=== PATIENT | male | born 1975 | race Caucasian/White ===

== ENCOUNTER 2023-03-12 21:42 | Inpatient (IN) | payer OTHER, SELFPAY ==
--- NOTE | ~2023-03-12 | US_ITS ---
EXAMINATION: US VENOUS ULTRASOUND WITH DOPPLER LOWER EXTREMITY, RIGHT CLINICAL INFORMATION: Right lower extreme swelling. COMPARISON: None available. TECHNIQUE: Ultrasound of the deep veins is performed from the hip to the calf with compression sonography and color and pulse Doppler assessment. Spectral analysis with color-flow imaging is performed. FINDINGS: There is normal venous compression and respiratory variation and augmented flow. The visualized common femoral vein, superficial femoral vein, profunda femoral vein, popliteal vein, and the trifurcation region shows no evidence of deep venous thrombosis. There is no significant popliteal fossa cyst. If the patient's symptoms persist, followup ultrasound in 5 days 7 days might be of value to exclude proximal propagation from a non-visualized calf vein. US/US venous duplex LE RT IMPRESSION: No DVT demonstrated in the right lower extremity.
[2023-03-12 21:55] VITALS: BP 121/76; PULSE 96; TEMP 36.1
[2023-03-12] MEDS: traZODone HCL 50 MG TABLET PO (23:22)
[2023-03-12] MEDS: hydrOXYzine HCL 25 MG TABLET PO (23:22)
[2023-03-13 00:07] VITALS: BMI 25.8
--- NOTE | 2023-03-13 00:10 | PC.ADMIT ---
A white, Thai-speaking male, aged 47 years was admitted to the [facility] as a CV at 2154 following referral from [facility] and [facility] Team. Pt presented at [facility] in the early hours of 03/12/23 with a plan to commit suicide by jumping off of a bridge or step into traffic. Pt said he is seeking treatment primarily for Etoh use; pt states that his cocaine use was really a binge, but he drinks up to 10 or more drinks nearly daily. MITCHELL was positive for cocaine, BAL was <3. Pt denies current withdrawal symptoms; CIWA score at [facility] was 7 and later 4. Pt reports feeling hopeless upon awakening every day. Pt reports these symptoms have been worse for the past week. Pt reports a history of trauma but was unwilling to disclose more than that. Pt lives with a friend in [place], but said that it is not a good environment for him as there is often Etoh or substance abuse occurring there. Pt reports having previous inpatient admissions for similar reasons in the past that helped him. Pt was calm and cooperative upon arrival. Pt denied current SI, but did say he felt he does not want to wake up. Pt says he can come to staff for help. Pt rates depression 8/10, anxiety 3-4/10. Pt denies AH/VH, HI, and pain. Pt is a daily one pack daily smoker and would like PRN 4mg nicotine lozenge ordered. Pt does not have a PCP, therapist, or psychiatric medication provider at this time. Pt is open to therapy, but is hesitant to take medications. Pt spoke about experiencing akathesia with buspar, haldol, zyprexa and seroquel in the past. Medical issues include Crohn's disease with history of abdominal surgery and reversed ostomy. Pt reports he currently has a reddened raised hives on arms and back for which he takes OTC allergy medication. [id number] done, admission orders obtained, safety tool and initial treatment plan done. Pt is resting in room on 15 minute safety checks at this time.
[2023-03-13 08:56] LABS: Estimated Average Glucose 100 mg/dL; Hemoglobin A1c % 5.1 %
[2023-03-13 09:09] LABS: Cholesterol 147 mg/dL; HDL Cholesterol 57 mg/dL; LDL Cholesterol Calculated 71 mg/dl; Magnesium 2.1 mg/dL (1.6-2.6); Triglycerides 96 mg/dL
[2023-03-13 09:13] VITALS: BP 111/80; PULSE 104; RESP 18; TEMP 36.4; O2SAT 98
[2023-03-13 09:40] LABS: Free T4 (Free Thyroxine) 0.77 ng/dL (0.71-1.85); Thyroid Stimulating Hormone 1.15 uIU/mL (0.32-4.0); Vitamin B12 308 pg/mL (200-900)
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
[2023-03-13 18:00] VITALS: BP 135/74; PULSE 112; RESP 18; TEMP 36.1; O2SAT 96
[2023-03-13] MEDS: Thiamine HCL 100 MG TABLET PO (18:54)
[2023-03-13] MEDS: Folic Acid 1 MG TABLET PO (18:54)
[2023-03-13] MEDS: LORazepam 1 MG TABLET PO ×2 (18:54→20:15)
[2023-03-13] MEDS: Mirtazapine 7.5 MG TABLET PO (20:14)
[2023-03-13] MEDS: traZODone HCL 50 MG TABLET PO (20:14)
[2023-03-13] MEDS: hydrOXYzine HCL 25 MG TABLET PO (20:14)
[2023-03-14 07:00] VITALS: BMI 26.9
[2023-03-14 08:45] VITALS: BP 111/77; PULSE 108; RESP 18; TEMP 36.6; O2SAT 93
[2023-03-14] MEDS: LORazepam 1 MG TABLET PO ×2 (08:48→20:44)
[2023-03-14] MEDS: Thiamine HCL 100 MG TABLET PO (08:48)
[2023-03-14] MEDS: Folic Acid 1 MG TABLET PO (08:48)
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
[2023-03-14 18:00] VITALS: BP 121/84; PULSE 94; RESP 14
[2023-03-14] MEDS: traZODone HCL 50 MG TABLET PO (20:44)
[2023-03-14] MEDS: Mirtazapine 7.5 MG TABLET PO (20:44)
[2023-03-14] MEDS: hydrOXYzine HCL 25 MG TABLET PO (21:37)
--- NOTE | 2023-03-15 08:10 | HO.PSYCHPN ---
Subjective Subjective Date of Service: 03/15/23 Reason For Visit: Depression, SI, Alcohol, Substance use D/O Interim History: Met with patient; discussed with team Patient reports that he does feel a little better. Depressions not quite as bad, anxiety not quite as bad; no SI. He slept better last night and agrees to have mirtazapine increased to 15 mg. Patient is ambivalent about going to a program. He says he wants to go but has some reservations, wanting to go straight from the unit if possible; he says otherwise he will just go home. Patient asked for allergy medication and agreed to Claritin. Mental Status Exam Mental Status Exam Narrative: Pt is alert and oriented; behavior is cooperative and calm; patient is not in distress; dressed in casual attire with unkempt hair, scuffy, malodorous; mood is described as little better and affect congruent, downcast; eye contact intermittent; Speech is normal rate, volume and prosody and not pressured; no psychomotor retardation present; thought process is organized and goal directed; Thought content is on treatment, aftercare, but also on self-deprecating thoughts; otherwise pertinent to relevant topics and without any delusional content, paranoid ideations or grandiosity; no SI; no HI. There is no evidence of perceptual disturbance. Patients insight and judgment improving, impaired but adequate. Diagnostics Vital Signs (24Hr): Vital Signs - 24 hr 03/14/23 08:45 03/14/23 18:00 Temperature 97.9 F Pulse Rate 108 H 94 Respiratory Rate 18 14 Blood Pressure 111/77 121/84 Pulse Oximetry 93 Oxygen Delivery Method Room Air BMI result Body Mass Index 26.9 Labs Labs: Laboratory Results - last 48 hr 03/13/23 03/13/23 08:21 08:21 Estimat Average Glucose 100 Hemoglobin A1c % 5.1 Magnesium 2.1 Triglycerides 96 Cholesterol 147 LDL Cholesterol, Calc 71 HDL Cholesterol 57 Vitamin B12 308 Folate 11.0 TSH 1.15 Free T4 0.77 Imaging Radiology Impressions: ITS Impressions Venous Duplex 03/13/23 17:11 IMPRESSION: No DVT demonstrated in the right lower extremity. Medications Medications Current Medications Acetaminophen (Acetaminophen 325 Mg Tablet) 650 mg PO Q6H PRN PRN Reason: Headache/Pain Mild Scale (1-3) Al Hydroxide/Mg Hydroxide (Magnesium Hydrox/Alum Hydrox 30 Ml Oral.Susp) 30 ml PO Q6H PRN PRN Reason: Heartburn/Nausea Folic Acid (Folic Acid 1 Mg Tablet) 1 mg PO DAILY [facility] Last Admin: 03/14/23 08:48 Dose: 1 mg Hydroxyzine HCl (Hydroxyzine Hcl 25 Mg Tablet) 25 mg PO Q6H PRN PRN Reason: Anxiety Last Admin: 03/14/23 21:37 Dose: 25 mg Lorazepam (Lorazepam 1 Mg Tablet) 1 mg PO BID [facility] Last Admin: 03/14/23 20:44 Dose: 1 mg Magnesium Hydroxide (Milk Of Magnesia 30 Ml Oral.Susp) 30 ml PO DAILY PRN PRN Reason: Constipation Mirtazapine (Mirtazapine 7.5 Mg Tablet) 7.5 mg PO BEDTIME [facility] Last Admin: 03/14/23 20:44 Dose: 7.5 mg Nicotine Polacrilex (Nicotine Polacrilex 2 Mg Gum) 2 mg BUCCAL Q2H PRN PRN Reason: Nicotine Cravings Thiamine HCl (Thiamine Hcl 100 Mg Tablet) 100 mg PO DAILY [facility] Last Admin: 03/14/23 08:48 Dose: 100 mg Trazodone HCl (Trazodone Hcl 50 Mg Tablet) 50 mg PO BEDTIME MRX1 PRN PRN Reason: Insomnia Last Admin: 03/14/23 20:44 Dose: 50 mg Allergies Allergies Allergy/AdvReac Type Severity Reaction Status Date / Time buspirone Allergy Unknown Unknown Verified 03/12/23 17:31 olanzapine Allergy Unknown Unknown Verified 03/12/23 17:31 quetiapine [From Seroquel] Allergy Unknown Unknown Verified 03/12/23 17:31 haldol Allergy Unknown Unknown Uncoded 03/12/23 17:31 Assessment & Plan Assessment & Plan (1) Routine medical exam: Status: Acute Code(s): Z00.00 - Encounter for general adult medical examination without abnormal findings Plan Patient is a 47-year-old male with history of depression, PTSD, chronic alcohol abuse/dependence, possible Crohn's disease who presents for worsening depression.? -Patient has an ever present, chronic moderate depression that intermittently worsens to bouts of severe depression; alcohol plays carious role as it both causes depression and relieves him of depressive thoughts, thus he is ambivalent about sobriety.? 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 Patient reports he may have Crohn's disease however he is ambivalent about his level of commitment to follow up with medical care. Hospital Course 03/15 patient reports feeling a little bit better; no SI. Agrees to increasing mirtazapine to 15 mg. Says withdrawals ending. Agrees to try Claritin for allergies. Considering going to a [facility] but still ambivalent. Patient acknowledges there is something about alcohol he is not sure if he is ready to give up, mostly how it subdued negative thoughts and feelings. Plan: CV Q 15 minute checks Increased to mirtazapine 15 mg q.h.s. Taper and discontinue Ativan Start Claritin 10 mg daily Hospitalist exam: # Crohn's disease- stable without acute flare up -Pt asymptoamtic at this time. 6+ without any flare -Recommend outpt follow up with gastroenterology -Unable to review colonoscopy report from [facility], but reviewed hospital notes #History RLE RVT- provoked -diagnosed at [facility] 09/01 on U/s (reviewed) -Treated inpt with heparin and transitioned to eliquis. Did not complete 3 months recommended course -RLE venous duplex negative for DVT. No further treatment with anticoagulants needed. Patient educated on: diagnosis, medication risk/benefits and substance abuse Informed Consent: understands Reason for contiued inpatient stay Substantial Risk for: med/psych decompensation Time Spent With Patient Time: Total time managing care of this patient today ____ minutes.
[2023-03-15] MEDS: Thiamine HCL 100 MG TABLET PO (08:15)
[2023-03-15] MEDS: Folic Acid 1 MG TABLET PO (08:15)
[2023-03-15] MEDS: LORazepam 1 MG TABLET PO (08:15)
[2023-03-15 09:27] VITALS: BP 109/82; PULSE 92; RESP 18; TEMP 36.1; O2SAT 96
[2023-03-15] MEDS: Loratadine 10 MG TABLET PO (10:30)
[2023-03-15 16:18] VITALS: BP 119/76; PULSE 104
[2023-03-15] MEDS: Mirtazapine 15 MG TABLET PO (21:03)
[2023-03-16] MEDS: LORazepam 1 MG TABLET PO (08:08)
[2023-03-16] MEDS: Thiamine HCL 100 MG TABLET PO (08:08)
[2023-03-16] MEDS: Loratadine 10 MG TABLET PO (08:09)
[2023-03-16] MEDS: Folic Acid 1 MG TABLET PO (08:09)
[2023-03-16 10:29] VITALS: BP 129/68; PULSE 62; RESP 18; TEMP 36.2; O2SAT 98
--- NOTE | 2023-03-16 11:25 | HO.PSYCHPN ---
Subjective Subjective Date of Service: 03/16/23 Reason For Visit: Depression, SI, Alcohol, Substance use D/O Subjective Notes: Conditional Voluntary Interim History: Patient seen, chart reviewed. Case discussed with RH. Reports having a rash which is pruritic. On exam, noted to have a few raised red lesions on right leg, left arm and face. None noted on trunk or chest. Recently started mirtazapine and claritin. Rash is not generalized. Medication Compliance: Yes Side effects from medications: No Attending Groups: Intermittent Review of Systems Acute medical concerns: Yes non-generalized rash Mental Status Exam Mental Status Exam Patient Appearance: Disheveled Patient Orientation: Person, Place, Time and Situation Level of Consciousness: Drowsy Patient Behavior: Appropriate, Passive, Anxious, Fatigued and Isolative Mood Description: Depressed and Anxious Affect Description: Withdrawn and Depressed Ability to Follow Directions: Good Speech Pattern: Clear Memory Description: Intact Hallucinations: None Delusions: Not Present Thought Process: Goal Oriented Depressive Symptoms: Increased Anxiety, Sleeping More Than Usual and Increased Fatigue Judgement: Fair Diagnostics Vital Signs (24Hr): Vital Signs - 24 hr 03/15/23 16:18 03/16/23 10:29 Temperature 97.1 F Pulse Rate 104 H 62 Respiratory Rate 18 Blood Pressure 119/76 129/68 Pulse Oximetry 98 Oxygen Delivery Method Room Air BMI result Body Mass Index 26.9 Imaging Radiology Impressions: ITS Impressions Venous Duplex 03/13/23 17:11 IMPRESSION: No DVT demonstrated in the right lower extremity. Medications Medications Current Medications Acetaminophen (Acetaminophen 325 Mg Tablet) 650 mg PO Q6H PRN PRN Reason: Headache/Pain Mild Scale (1-3) Al Hydroxide/Mg Hydroxide (Magnesium Hydrox/Alum Hydrox 30 Ml Oral.Susp) 30 ml PO Q6H PRN PRN Reason: Heartburn/Nausea Folic Acid (Folic Acid 1 Mg Tablet) 1 mg PO DAILY [facility] Last Admin: 03/16/23 08:09 Dose: 1 mg Hydroxyzine HCl (Hydroxyzine Hcl 25 Mg Tablet) 25 mg PO Q6H PRN PRN Reason: Anxiety Last Admin: 03/14/23 21:37 Dose: 25 mg Loratadine (Loratadine 10 Mg Tablet) 10 mg PO DAILY [facility] Last Admin: 03/16/23 08:09 Dose: 10 mg Lorazepam (Lorazepam 1 Mg Tablet) 1 mg PO DAILY [facility] Stop: 03/17/23 12:00 Last Admin: 03/16/23 08:08 Dose: 1 mg Magnesium Hydroxide (Milk Of Magnesia 30 Ml Oral.Susp) 30 ml PO DAILY PRN PRN Reason: Constipation Mirtazapine (Mirtazapine 15 Mg Tablet) 15 mg PO BEDTIME [facility] Last Admin: 03/15/23 21:03 Dose: 15 mg Nicotine Polacrilex (Nicotine Polacrilex 2 Mg Gum) 2 mg BUCCAL Q2H PRN PRN Reason: Nicotine Cravings Thiamine HCl (Thiamine Hcl 100 Mg Tablet) 100 mg PO DAILY [facility] Last Admin: 03/16/23 08:08 Dose: 100 mg Trazodone HCl (Trazodone Hcl 50 Mg Tablet) 50 mg PO BEDTIME MRX1 PRN PRN Reason: Insomnia Last Admin: 03/14/23 20:44 Dose: 50 mg Allergies Allergies Allergy/AdvReac Type Severity Reaction Status Date / Time buspirone Allergy Unknown Unknown Verified 03/12/23 17:31 olanzapine Allergy Unknown Unknown Verified 03/12/23 17:31 quetiapine [From Seroquel] Allergy Unknown Unknown Verified 03/12/23 17:31 haldol Allergy Unknown Unknown Uncoded 03/12/23 17:31 Assessment & Plan Assessment & Plan (1) Routine medical exam: Status: Acute Code(s): Z00.00 - Encounter for general adult medical examination without abnormal findings Assessment and Plan: Remains depressed, interested in rehab. Had SI last night when thinking about his situation and all the things he cannot change. No SI today. Will discontinue claritin and use benadryl for itching, allergies and rash. If rash continues to generalize, would stop remeron. Plan Patient is a 47-year-old male with history of depression, PTSD, chronic alcohol abuse/dependence, possible Crohn's disease who presents for worsening depression.? -Patient has an ever present, chronic moderate depression that intermittently worsens to bouts of severe depression; alcohol plays carious role as it both causes depression and relieves him of depressive thoughts, thus he is ambivalent about sobriety.? 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 Patient reports he may have Crohn's disease however he is ambivalent about his level of commitment to follow up with medical care. Hospital Course 03/15 patient reports feeling a little bit better; no SI. Agrees to increasing mirtazapine to 15 mg. Says withdrawals ending. Agrees to try Claritin for allergies. Considering going to a [facility] but still ambivalent. Patient acknowledges there is something about alcohol he is not sure if he is ready to give up, mostly how it subdued negative thoughts and feelings. Plan: CV Q 15 minute checks Increased to mirtazapine 15 mg q.h.s. Taper and discontinue Ativan Start Claritin 10 mg daily Hospitalist exam: # Crohn's disease- stable without acute flare up -Pt asymptoamtic at this time. 6+ without any flare -Recommend outpt follow up with gastroenterology -Unable to review colonoscopy report from [facility], but reviewed hospital notes #History RLE RVT- provoked -diagnosed at [facility] 09/01 on U/s (reviewed) -Treated inpt with heparin and transitioned to eliquis. Did not complete 3 months recommended course -RLE venous duplex negative for DVT. No further treatment with anticoagulants needed. Reason for continued inpatient stay Substantial Risk for: harm to self Time Spent With Patient Time: Total time managing care of this patient today ___15_ minutes.
[2023-03-16 15:48] VITALS: BP 121/88; PULSE 97
[2023-03-16] MEDS: diphenhydrAMINE HCL 25 MG CAPSULE PO (19:19)
[2023-03-16] MEDS: traZODone HCL 50 MG TABLET PO (21:27)
[2023-03-16] MEDS: Mirtazapine 15 MG TABLET PO (21:27)
[2023-03-16] MEDS: hydrOXYzine HCL 25 MG TABLET PO (21:27)
[2023-03-17] MEDS: Thiamine HCL 100 MG TABLET PO (08:55)
[2023-03-17] MEDS: Folic Acid 1 MG TABLET PO (08:55)
[2023-03-17] MEDS: LORazepam 1 MG TABLET PO (08:55)
[2023-03-17 09:24] VITALS: BP 144/91; PULSE 125; RESP 18; TEMP 36.8; O2SAT 98
--- NOTE | 2023-03-17 15:20 | P.PNPSI_ITS ---
Subjective Subjective Date of Service: 03/17/23 Reason For Visit: Depression, SI, Alcohol, Substance use D/O Subjective Notes: Conditional Voluntary Interim History: Patient seen. Chart reviewed. Case discussed with RN. States he is bored as hell. Still having itching but no spread of rash beyond few isolated spots. Medication Compliance: Yes Side effects from medications: No Attending Groups: No Review of Systems Acute medical concerns: No Mental Status Exam Mental Status Exam Patient Appearance: Disheveled Level of Consciousness: Drowsy Patient Behavior: Passive, Fatigued and Poor Eye Contact Mood Description: Depressed Affect Description: Apathetic and Withdrawn Speech Pattern: Mumbled Hallucinations: None Delusions: Not Present Thought Process: Linear Thought Content: positive for Suicidal Ideation Depressive Symptoms: Difficulty Sleeping, Hopelessness and Difficulty Concentrating Diagnostics Vital Signs (24Hr): Vital Signs - 24 hr 03/16/23 15:48 03/17/23 09:24 Temperature 98.3 F Pulse Rate 97 125 H Respiratory Rate 18 Blood Pressure 121/88 144/91 H Pulse Oximetry 98 Oxygen Delivery Method Room Air BMI result Body Mass Index 26.9 Imaging Radiology Impressions: ITS Impressions Venous Duplex 03/13/23 17:11 IMPRESSION: No DVT demonstrated in the right lower extremity. Medications Medications Current Medications Acetaminophen (Acetaminophen 325 Mg Tablet) 650 mg PO Q6H PRN PRN Reason: Headache/Pain Mild Scale (1-3) Al Hydroxide/Mg Hydroxide (Magnesium Hydrox/Alum Hydrox 30 Ml Oral.Susp) 30 ml PO Q6H PRN PRN Reason: Heartburn/Nausea Diphenhydramine HCl (Diphenhydramine Hcl 25 Mg Capsule) 25 mg PO Q6H PRN PRN Reason: Itching Last Admin: 03/16/23 19:19 Dose: 25 mg Folic Acid (Folic Acid 1 Mg Tablet) 1 mg PO DAILY [facility] Last Admin: 03/17/23 08:55 Dose: 1 mg Hydroxyzine HCl (Hydroxyzine Hcl 25 Mg Tablet) 25 mg PO Q6H PRN PRN Reason: Anxiety Last Admin: 03/16/23 21:27 Dose: 25 mg Magnesium Hydroxide (Milk Of Magnesia 30 Ml Oral.Susp) 30 ml PO DAILY PRN PRN Reason: Constipation Mirtazapine (Mirtazapine 15 Mg Tablet) 15 mg PO BEDTIME [facility] Last Admin: 03/16/23 21:27 Dose: 15 mg Nicotine Polacrilex (Nicotine Polacrilex 2 Mg Gum) 2 mg BUCCAL Q2H PRN PRN Reason: Nicotine Cravings Thiamine HCl (Thiamine Hcl 100 Mg Tablet) 100 mg PO DAILY [facility] Last Admin: 03/17/23 08:55 Dose: 100 mg Trazodone HCl (Trazodone Hcl 50 Mg Tablet) 50 mg PO BEDTIME MRX1 PRN PRN Reason: Insomnia Last Admin: 03/16/23 21:27 Dose: 50 mg Allergies Allergies Allergy/AdvReac Type Severity Reaction Status Date / Time buspirone Allergy Unknown Unknown Verified 03/12/23 17:31 olanzapine Allergy Unknown Unknown Verified 03/12/23 17:31 quetiapine [From Seroquel] Allergy Unknown Unknown Verified 03/12/23 17:31 haldol Allergy Unknown Unknown Uncoded 03/12/23 17:31 Assessment & Plan Assessment & Plan (1) Routine medical exam: Status: Acute Code(s): Z00.00 - Encounter for general adult medical examination without abnormal findings Assessment and Plan: 03/16Remains depressed, interested in rehab. Had SI last night when thinking about his situation and all the things he cannot change. No SI today. Will discontinue claritin and use benadryl for itching, allergies and rash. If rash continues to generalize, would stop remeron. Plan Patient is a 47-year-old male with history of depression, PTSD, chronic alcohol abuse/dependence, possible Crohn's disease who presents for worsening depression.? -Patient has an ever present, chronic moderate depression that intermittently worsens to bouts of severe depression; alcohol plays carious role as it both causes depression and relieves him of depressive thoughts, thus he is ambivalent about sobriety.? 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 Patient reports he may have Crohn's disease however he is ambivalent about his level of commitment to follow up with medical care. Hospital Course 03/15 patient reports feeling a little bit better; no SI. Agrees to increasing mirtazapine to 15 mg. Says withdrawals ending. Agrees to try Claritin for allergies. Considering going to a [facility] but still ambivalent. Patient acknowledges there is something about alcohol he is not sure if he is ready to give up, mostly how it subdued negative thoughts and feelings. 03/17 rash has not progressed. Patient has history of itchy skin (? exzema) Claritin discontinued as not effective for itching nad was a new med started when rash recurred. Plan: CV Q 15 minute checks Increased to mirtazapine 15 mg q.h.s. Taper and discontinue Ativan Start Claritin 10 mg daily Hospitalist exam: # Crohn's disease- stable without acute flare up -Pt asymptoamtic at this time. 6+ without any flare -Recommend outpt follow up with gastroenterology -Unable to review colonoscopy report from [facility], but reviewed hospital notes #History RLE RVT- provoked -diagnosed at [facility] 09/01 on U/s (reviewed) -Treated inpt with heparin and transitioned to eliquis. Did not complete 3 months recommended course -RLE venous duplex negative for DVT. No further treatment with anticoagulants needed. Reason for continued inpatient stay Substantial Risk for: harm to self Time Spent With Patient Time: Total time managing care of this patient today ____ minutes.
[2023-03-17 16:09] VITALS: BP 113/70; PULSE 96
[2023-03-17] MEDS: Mirtazapine 15 MG TABLET PO (21:13)
[2023-03-17] MEDS: diphenhydrAMINE HCL 25 MG CAPSULE PO (21:15)
[2023-03-17] MEDS: hydrOXYzine HCL 25 MG TABLET PO (21:15)
[2023-03-17] MEDS: traZODone HCL 50 MG TABLET PO (21:15)
[2023-03-18] MEDS: Folic Acid 1 MG TABLET PO (08:33)
[2023-03-18] MEDS: Thiamine HCL 100 MG TABLET PO (08:33)
[2023-03-18 08:53] VITALS: BP 118/76; PULSE 77; RESP 74; TEMP 36.1; O2SAT 95
--- NOTE | 2023-03-18 09:39 | HO.PSYCHPN ---
Subjective Subjective Date of Service: 03/18/23 Reason For Visit: Depression, SI, Alcohol, Substance use D/O Subjective Notes: Conditional Voluntary Interim History: Reports sleep disturbance due to restless legs and itching. Rash has not progressed beyond the few locations where it has been. States he tends to get itching and rash which are stress related. States he sometimes gets restless legs when on meds. Received PRN benadryl for itching last 2 nights as well as PRN vistaril without much effect Side effects from medications: Yes (possibly causing restless legs) Review of Systems Acute medical concerns: No Mental Status Exam Mental Status Exam Patient Appearance: Unkempt Level of Consciousness: Alert Patient Behavior: Appropriate, Distractible and Poor Eye Contact Mood Description: Anxious Affect Description: Constricted Patient Cognition Impaired: No Speech Pattern: Clear Hallucinations: None Delusions: Not Present Thought Process: Linear Thought Content: positive for Suicidal Ideation (without current plan or intent) Depressive Symptoms: Difficulty Sleeping and Changes in Appetite Diagnostics Vital Signs (24Hr): Vital Signs - 24 hr 03/17/23 16:09 03/18/23 08:53 Temperature 97.0 F Pulse Rate 96 77 Respiratory Rate 74 H Blood Pressure 113/70 118/76 Pulse Oximetry 95 Oxygen Delivery Method Room Air BMI result Body Mass Index 26.9 Imaging Radiology Impressions: ITS Impressions Venous Duplex 03/13/23 17:11 IMPRESSION: No DVT demonstrated in the right lower extremity. Medications Medications Current Medications Acetaminophen (Acetaminophen 325 Mg Tablet) 650 mg PO Q6H PRN PRN Reason: Headache/Pain Mild Scale (1-3) Al Hydroxide/Mg Hydroxide (Magnesium Hydrox/Alum Hydrox 30 Ml Oral.Susp) 30 ml PO Q6H PRN PRN Reason: Heartburn/Nausea Diphenhydramine HCl (Diphenhydramine Hcl 25 Mg Capsule) 25 mg PO Q6H PRN PRN Reason: Itching Last Admin: 03/17/23 21:15 Dose: 25 mg Folic Acid (Folic Acid 1 Mg Tablet) 1 mg PO DAILY [facility] Last Admin: 03/18/23 08:33 Dose: 1 mg Hydroxyzine HCl (Hydroxyzine Hcl 25 Mg Tablet) 25 mg PO Q6H PRN PRN Reason: Anxiety Last Admin: 03/17/23 21:15 Dose: 25 mg Magnesium Hydroxide (Milk Of Magnesia 30 Ml Oral.Susp) 30 ml PO DAILY PRN PRN Reason: Constipation Mirtazapine (Mirtazapine 15 Mg Tablet) 15 mg PO BEDTIME [facility] Last Admin: 03/17/23 21:13 Dose: 15 mg Nicotine Polacrilex (Nicotine Polacrilex 2 Mg Gum) 2 mg BUCCAL Q2H PRN PRN Reason: Nicotine Cravings Thiamine HCl (Thiamine Hcl 100 Mg Tablet) 100 mg PO DAILY [facility] Last Admin: 03/18/23 08:33 Dose: 100 mg Trazodone HCl (Trazodone Hcl 50 Mg Tablet) 50 mg PO BEDTIME MRX1 PRN PRN Reason: Insomnia Last Admin: 03/17/23 21:15 Dose: 50 mg Allergies Allergies Allergy/AdvReac Type Severity Reaction Status Date / Time buspirone Allergy Unknown Unknown Verified 03/12/23 17:31 olanzapine Allergy Unknown Unknown Verified 03/12/23 17:31 quetiapine [From Seroquel] Allergy Unknown Unknown Verified 03/12/23 17:31 haldol Allergy Unknown Unknown Uncoded 03/12/23 17:31 Assessment & Plan Assessment & Plan (1) Routine medical exam: Status: Acute Code(s): Z00.00 - Encounter for general adult medical examination without abnormal findings Assessment and Plan: 03/16Remains depressed, interested in rehab. Had SI last night when thinking about his situation and all the things he cannot change. No SI today. Will discontinue claritin and use benadryl for itching, allergies and rash. If rash continues to generalize, would stop remeron. Plan Patient is a 47-year-old male with history of depression, PTSD, chronic alcohol abuse/dependence, possible Crohn's disease who presents for worsening depression.? -Patient has an ever present, chronic moderate depression that intermittently worsens to bouts of severe depression; alcohol plays carious role as it both causes depression and relieves him of depressive thoughts, thus he is ambivalent about sobriety.? 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 Patient reports he may have Crohn's disease however he is ambivalent about his level of commitment to follow up with medical care. Hospital Course 03/15 patient reports feeling a little bit better; no SI. Agrees to increasing mirtazapine to 15 mg. Says withdrawals ending. Agrees to try Claritin for allergies. Considering going to a [facility] but still ambivalent. Patient acknowledges there is something about alcohol he is not sure if he is ready to give up, mostly how it subdued negative thoughts and feelings. 03/17 rash has not progressed. Patient has history of itchy skin (? exzema) Claritin discontinued as not effective for itching nad was a new med started when rash recurred. 03/18 continued itching and restless legs last night only. Will increase benadryl for itching Plan: CV Q 15 minute checks Increased to mirtazapine 15 mg q.h.s. Taper and discontinue Ativan Start Claritin 10 mg daily Hospitalist exam: # Crohn's disease- stable without acute flare up -Pt asymptoamtic at this time. 6+ without any flare -Recommend outpt follow up with gastroenterology -Unable to review colonoscopy report from [facility], but reviewed hospital notes #History RLE RVT- provoked -diagnosed at [facility] 09/01 on U/s (reviewed) -Treated inpt with heparin and transitioned to eliquis. Did not complete 3 months recommended course -RLE venous duplex negative for DVT. No further treatment with anticoagulants needed. Reason for continued inpatient stay Substantial Risk for: harm to self Time Spent With Patient Time: Total time managing care of this patient today ____ minutes.
[2023-03-18] MEDS: diphenhydrAMINE HCL 25 MG CAPSULE 50 MG PO (19:15)
[2023-03-18] MEDS: traZODone HCL 50 MG TABLET PO (22:46)
[2023-03-19] MEDS: Thiamine HCL 100 MG TABLET PO (08:23)
[2023-03-19] MEDS: Folic Acid 1 MG TABLET PO (08:23)
[2023-03-19 08:24] VITALS: BP 117/90; PULSE 102; RESP 16; TEMP 36.4; O2SAT 96
--- NOTE | 2023-03-19 09:56 | HO.PSYCHPN ---
Subjective Subjective Date of Service: 03/19/23 Reason For Visit: Depression, SI, Alcohol, Substance use D/O Interim History: Met with patient; discussed with team; reviewed weekend progress notes Patient reports that he is doing a little better overall that his anxiety is lower. He still wants to go to [facility] program but does remain somewhat ambivalent. Patient has gone to groups and says he will continue going. He explained how 1 was helpful to. Discussed medication and does not want any changes at this time; fiction writer again mentioned ECT however patient does not want this. Mood is a little better and no SI. Mental Status Exam Mental Status Exam Narrative: Pt is alert and oriented; behavior is cooperative and calm; patient is not in distress; dressed in casual attire with unkempt hair, scuffy, marginal hygiene; mood is described as little better and affect congruent, brighter, more naturally expressive, smiles at times; eye contact intermittent; Speech is normal rate, volume and prosody and not pressured; no psychomotor retardation present; thought process is organized and goal directed; Thought content is on treatment, aftercare, but also on self-deprecating thoughts which are chronic; otherwise pertinent to relevant topics and without any delusional content, paranoid ideations or grandiosity; no SI; no HI. There is no evidence of perceptual disturbance. Patients insight and judgment improved, fair and adequate. Diagnostics Vital Signs (24Hr): Vital Signs - 24 hr 03/19/23 08:24 Temperature 97.6 F Pulse Rate 102 H Respiratory Rate 16 Blood Pressure 117/90 H Pulse Oximetry 96 Oxygen Delivery Method Room Air BMI result Body Mass Index 26.9 Imaging Radiology Impressions: ITS Impressions Venous Duplex 03/13/23 17:11 IMPRESSION: No DVT demonstrated in the right lower extremity. Medications Medications Current Medications Acetaminophen (Acetaminophen 325 Mg Tablet) 650 mg PO Q6H PRN PRN Reason: Headache/Pain Mild Scale (1-3) Al Hydroxide/Mg Hydroxide (Magnesium Hydrox/Alum Hydrox 30 Ml Oral.Susp) 30 ml PO Q6H PRN PRN Reason: Heartburn/Nausea Diphenhydramine HCl (Diphenhydramine Hcl 25 Mg Capsule) 50 mg PO Q6H PRN PRN Reason: Itching Last Admin: 03/18/23 19:15 Dose: 50 mg Folic Acid (Folic Acid 1 Mg Tablet) 1 mg PO DAILY YESSI Last Admin: 03/19/23 08:23 Dose: 1 mg Hydroxyzine HCl (Hydroxyzine Hcl 25 Mg Tablet) 25 mg PO Q6H PRN PRN Reason: Anxiety Last Admin: 03/17/23 21:15 Dose: 25 mg Magnesium Hydroxide (Milk Of Magnesia 30 Ml Oral.Susp) 30 ml PO DAILY PRN PRN Reason: Constipation Mirtazapine (Mirtazapine 15 Mg Tablet) 15 mg PO BEDTIME [facility] Last Admin: 03/18/23 22:45 Dose: Not Given Nicotine Polacrilex (Nicotine Polacrilex 2 Mg Gum) 2 mg BUCCAL Q2H PRN PRN Reason: Nicotine Cravings Thiamine HCl (Thiamine Hcl 100 Mg Tablet) 100 mg PO DAILY [facility] Last Admin: 03/19/23 08:23 Dose: 100 mg Trazodone HCl (Trazodone Hcl 50 Mg Tablet) 50 mg PO BEDTIME MRX1 PRN PRN Reason: Insomnia Last Admin: 03/18/23 22:46 Dose: 50 mg Allergies Allergies Allergy/AdvReac Type Severity Reaction Status Date / Time buspirone Allergy Unknown Unknown Verified 03/12/23 17:31 olanzapine Allergy Unknown Unknown Verified 03/12/23 17:31 quetiapine [From Seroquel] Allergy Unknown Unknown Verified 03/12/23 17:31 haldol Allergy Unknown Unknown Uncoded 03/12/23 17:31 Assessment & Plan Assessment & Plan (1) Routine medical exam: Status: Acute Code(s): Z00.00 - Encounter for general adult medical examination without abnormal findings Assessment and Plan: 03/16Remains depressed, interested in rehab. Had SI last night when thinking about his situation and all the things he cannot change. No SI today. Will discontinue claritin and use benadryl for itching, allergies and rash. If rash continues to generalize, would stop remeron. Plan Patient is a 47-year-old male with history of depression, PTSD, chronic alcohol abuse/dependence, possible Crohn's disease who presents for worsening depression.? -Patient has an ever present, chronic moderate depression that intermittently worsens to bouts of severe depression; alcohol plays carious role as it both causes depression and relieves him of depressive thoughts, thus he is ambivalent about sobriety.? 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 Patient reports he may have Crohn's disease however he is ambivalent about his level of commitment to follow up with medical care. Hospital Course 03/15 patient reports feeling a little bit better; no SI. Agrees to increasing mirtazapine to 15 mg. Says withdrawals ending. Agrees to try Claritin for allergies. Considering going to a [facility] but still ambivalent. Patient acknowledges there is something about alcohol he is not sure if he is ready to give up, mostly how it subdued negative thoughts and feelings. 03/17 rash has not progressed. Patient has history of itchy skin (? exzema) Claritin discontinued as not effective for itching and was a new med started when rash recurred. 03/18 continued itching and restless legs last night only. Will increase benadryl for itching 03/19 patient's anxiety and mood have improved and he agrees that medications have been helping. Still wants to go to [facility] though has some ambivalence; wants sobriety but still is in contemplative stages of fully given up alcohol. Patient is going to groups. Plan: CV Q 15 minute checks Continue to mirtazapine 15 mg q.h.s. Taper and discontinue Ativan Discontinued Claritin due to possible adverse reaction Hospitalist exam: # Crohn's disease- stable without acute flare up -Pt asymptoamtic at this time. 6+ without any flare -Recommend outpt follow up with gastroenterology -Unable to review colonoscopy report from [facility], but reviewed hospital notes #History RLE RVT- provoked -diagnosed at [facility] 09/01 on U/s (reviewed) -Treated inpt with heparin and transitioned to eliquis. Did not complete 3 months recommended course -RLE venous duplex negative for DVT. No further treatment with anticoagulants needed. Patient educated on: diagnosis, medication risk/benefits and ECT Informed Consent: understands Reason for continued inpatient stay Substantial Risk for: stable for discharge Time Spent With Patient Time: Total time managing care of this patient today ____ minutes.
[2023-03-19 18:00] VITALS: BP 117/81; PULSE 97; TEMP 35.9; O2SAT 95
[2023-03-19] MEDS: Mirtazapine 15 MG TABLET PO (20:44)
[2023-03-19] MEDS: diphenhydrAMINE HCL 25 MG CAPSULE 50 MG PO (20:44)
--- NOTE | 2023-03-20 09:02 | HO.PSYCHPN ---
Subjective Subjective Date of Service: 03/20/23 Reason For Visit: Depression, SI, Alcohol, Substance use D/O Interim History: Met with patient; discussed with team pt maintains that he's overall feeling better, that anxiety and depression, though remain, are less. Pt waiting for [facility]. Pt c/o of trouble sleeping due to what he describes as restless leg; he agrees to try ropinirole. Mental Status Exam Mental Status Exam Narrative: Pt is alert and oriented; behavior is cooperative and calm; patient is not in distress; dressed in casual attire with unkempt hair, scuffy, marginal hygiene; mood is described as little better and affect congruent, brighter, more naturally expressive, smiles at times; eye contact intermittent; Speech is normal rate, volume and prosody and not pressured; no psychomotor retardation present; thought process is organized and goal directed; Thought content is on treatment, aftercare, but also on self-deprecating thoughts which are chronic; otherwise pertinent to relevant topics and without any delusional content, paranoid ideations or grandiosity; no SI; no HI. There is no evidence of perceptual disturbance. Patients insight and judgment improved, fair and adequate. Diagnostics Vital Signs (24Hr): Vital Signs - 24 hr 03/19/23 18:00 Temperature 96.7 F L Pulse Rate 97 Blood Pressure 117/81 Pulse Oximetry 95 Oxygen Delivery Method Room Air BMI result Body Mass Index 26.9 Imaging Radiology Impressions: ITS Impressions Venous Duplex 03/13/23 17:11 IMPRESSION: No DVT demonstrated in the right lower extremity. Medications Medications Current Medications Acetaminophen (Acetaminophen 325 Mg Tablet) 650 mg PO Q6H PRN PRN Reason: Headache/Pain Mild Scale (1-3) Al Hydroxide/Mg Hydroxide (Magnesium Hydrox/Alum Hydrox 30 Ml Oral.Susp) 30 ml PO Q6H PRN PRN Reason: Heartburn/Nausea Diphenhydramine HCl (Diphenhydramine Hcl 25 Mg Capsule) 50 mg PO Q6H PRN PRN Reason: Itching Last Admin: 03/19/23 20:44 Dose: 50 mg Folic Acid (Folic Acid 1 Mg Tablet) 1 mg PO DAILY YESSI Last Admin: 03/19/23 08:23 Dose: 1 mg Hydroxyzine HCl (Hydroxyzine Hcl 25 Mg Tablet) 25 mg PO Q6H PRN PRN Reason: Anxiety Last Admin: 03/17/23 21:15 Dose: 25 mg Magnesium Hydroxide (Milk Of Magnesia 30 Ml Oral.Susp) 30 ml PO DAILY PRN PRN Reason: Constipation Mirtazapine (Mirtazapine 15 Mg Tablet) 15 mg PO BEDTIME YESSI Last Admin: 03/19/23 20:44 Dose: 15 mg Nicotine Polacrilex (Nicotine Polacrilex 2 Mg Gum) 2 mg BUCCAL Q2H PRN PRN Reason: Nicotine Cravings Thiamine HCl (Thiamine Hcl 100 Mg Tablet) 100 mg PO DAILY YESSI Last Admin: 03/19/23 08:23 Dose: 100 mg Trazodone HCl (Trazodone Hcl 50 Mg Tablet) 50 mg PO BEDTIME MRX1 PRN PRN Reason: Insomnia Last Admin: 03/18/23 22:46 Dose: 50 mg Allergies Allergies Allergy/AdvReac Type Severity Reaction Status Date / Time buspirone Allergy Unknown Unknown Verified 03/12/23 17:31 olanzapine Allergy Unknown Unknown Verified 03/12/23 17:31 quetiapine [From Seroquel] Allergy Unknown Unknown Verified 03/12/23 17:31 haldol Allergy Unknown Unknown Uncoded 03/12/23 17:31 Assessment & Plan Assessment & Plan (1) Routine medical exam: Status: Acute Code(s): Z00.00 - Encounter for general adult medical examination without abnormal findings Assessment and Plan: 03/16Remains depressed, interested in rehab. Had SI last night when thinking about his situation and all the things he cannot change. No SI today. Will discontinue claritin and use benadryl for itching, allergies and rash. If rash continues to generalize, would stop remeron. Plan Patient is a 47-year-old male with history of depression, PTSD, chronic alcohol abuse/dependence, possible Crohn's disease who presents for worsening depression.? -Patient has an ever present, chronic moderate depression that intermittently worsens to bouts of severe depression; alcohol plays carious role as it both causes depression and relieves him of depressive thoughts, thus he is ambivalent about sobriety.? 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 Patient reports he may have Crohn's disease however he is ambivalent about his level of commitment to follow up with medical care. Hospital Course 03/15 patient reports feeling a little bit better; no SI. Agrees to increasing mirtazapine to 15 mg. Says withdrawals ending. Agrees to try Claritin for allergies. Considering going to a [facility] but still ambivalent. Patient acknowledges there is something about alcohol he is not sure if he is ready to give up, mostly how it subdued negative thoughts and feelings. 03/17 rash has not progressed. Patient has history of itchy skin (? exzema) Claritin discontinued as not effective for itching and was a new med started when rash recurred. 03/18 continued itching and restless legs last night only. Will increase benadryl for itching 03/19 patient's anxiety and mood have improved and he agrees that medications have been helping. Still wants to go to [facility] though has some ambivalence; wants sobriety but still is in contemplative stages of fully given up alcohol. Patient is going to groups. 03/20 remains overall better on Mirtazapine; possibly restless leg though has tolerated mirtazapine before; will likely try ropinirole Plan: CV Q 15 minute checks Continue to mirtazapine 15 mg q.h.s. adry start ropinirole 0.25mg qhs Taper and discontinue Ativan Discontinued Claritin due to possible adverse reaction Hospitalist exam: # Crohn's disease- stable without acute flare up -Pt asymptoamtic at this time. 6+ without any flare -Recommend outpt follow up with gastroenterology -Unable to review colonoscopy report from [facility], but reviewed hospital notes #History RLE RVT- provoked -diagnosed at [facility] 09/01 on U/s (reviewed) -Treated inpt with heparin and transitioned to eliquis. Did not complete 3 months recommended course -RLE venous duplex negative for DVT. No further treatment with anticoagulants needed. Patient educated on: diagnosis, medication risk/benefits and substance abuse Informed Consent: understands Reason for continued inpatient stay Substantial Risk for: stable for discharge Time Spent With Patient Time: Total time managing care of this patient today ____ minutes.
[2023-03-20 09:08] VITALS: BP 120/83; PULSE 76; RESP 16; TEMP 36.2; O2SAT 97
[2023-03-20] MEDS: diphenhydrAMINE HCL 25 MG CAPSULE 50 MG PO ×2 (09:09→20:29)
[2023-03-20] MEDS: Thiamine HCL 100 MG TABLET PO (09:09)
[2023-03-20] MEDS: Folic Acid 1 MG TABLET PO (09:09)
[2023-03-20 20:25] VITALS: BP 128/77; PULSE 96; TEMP 36.4; O2SAT 96
--- NOTE | 2023-03-20 22:33 | PC.NURSE ---
Patient refused Remeron and said I'm not sure I want to take psychiatric medications.
--- NOTE | 2023-03-21 07:41 | P.PNPSI_ITS ---
Subjective Subjective Date of Service: 03/21/23 Reason For Visit: Depression, SI, Alcohol, Substance use D/O Interim History: Met with patient; discussed with team; Patient reports he is doing well, feeling overall better and that depression is much less and anxiety way down. He is ambivalent about whether he will continue taking mirtazapine. He is hoping to get into a program and is grateful that he has remained on the unit to get such treatment. He is optimistic about staying sober. Mental Status Exam Mental Status Exam Narrative: Pt is alert and oriented; behavior is cooperative and calm; patient is not in distress; dressed in casual attire with unkempt hair, scuffy, marginal hygiene; mood is described as little better and affect congruent, brighter, more n aturally expressive, smiles at times; eye contact intermittent; Speech is normal rate, volume and prosody and not pressured; no psychomotor retardation present; thought process is organized and goal directed; Thought content is on treatment, aftercare, but also on self-deprecating thoughts which are chronic; otherwise pertinent to relevant topics and without any delusional content, paranoid ideat ions or grandiosity; no SI; no HI. There is no evidence of perceptual disturbance. Patients insight and judgment improved, fair and adequate. Diagnostics Vital Signs (24Hr): Vital Signs - 24 hr 03/20/23 09:08 03/20/23 20:25 Temperature 97.1 F 97.6 F Pulse Rate 76 96 Respiratory Rate 16 Blood Pressure 120/83 128/77 Pulse Oximetry 97 96 Oxygen Delivery Method Room Air Room Air BMI result Body Mass Index 26.9 Imaging Radiology Impressions: ITS Impressions Venous Duplex 03/13/23 17:11 IMPRESSION: No DVT demonstrated in the right lower extremity. Medications Medications Current Medications Acetaminophen (Acetaminophen 325 Mg Tablet) 650 mg PO Q6H PRN PRN Reason: Headache/Pain Mild Scale (1-3) Al Hydroxide/Mg Hydroxide (Magnesium Hydrox/Alum Hydrox 30 Ml Oral.Susp) 30 ml PO Q6H PRN PRN Reason: Heartburn/Nausea Diphenhydramine HCl (Diphenhydramine Hcl 25 Mg Capsule) 50 mg PO Q6H PRN PRN Reason: Itching Last Admin: 03/20/23 20:29 Dose: 50 mg Folic Acid (Folic Acid 1 Mg Tablet) 1 mg PO DAILY YESSI Last Admin: 03/20/23 09:09 Dose: 1 mg Hydroxyzine HCl (Hydroxyzine Hcl 25 Mg Tablet) 25 mg PO Q6H PRN PRN Reason: Anxiety Last Admin: 03/17/23 21:15 Dose: 25 mg Magnesium Hydroxide (Milk Of Magnesia 30 Ml Oral.Susp) 30 ml PO DAILY PRN PRN Reason: Constipation Mirtazapine (Mirtazapine 15 Mg Tablet) 15 mg PO BEDTIME [facility] Last Admin: 03/20/23 20:22 Dose: Not Given Nicotine Polacrilex (Nicotine Polacrilex 2 Mg Gum) 2 mg BUCCAL Q2H PRN PRN Reason: Nicotine Cravings Ropinirole HCl (Ropinirole Hcl 0.25 Mg Tablet) 0.25 mg PO BEDTIME YESSI Thiamine HCl (Thiamine Hcl 100 Mg Tablet) 100 mg PO DAILY [facility] Last Admin: 03/20/23 09:09 Dose: 100 mg Trazodone HCl (Trazodone Hcl 50 Mg Tablet) 50 mg PO BEDTIME MRX1 PRN PRN Reason: Insomnia Last Admin: 03/18/23 22:46 Dose: 50 mg Allergies Allergies Allergy/AdvReac Type Severity Reaction Status Date / Time buspirone Allergy Unknown Unknown Verified 03/12/23 17:31 olanzapine Allergy Unknown Unknown Verified 03/12/23 17:31 quetiapine [From Seroquel] Allergy Unknown Unknown Verified 03/12/23 17:31 haldol Allergy Unknown Unknown Uncoded 03/12/23 17:31 Assessment & Plan Assessment & Plan (1) MDD (major depressive disorder), recurrent episode, severe: Status: Acute Code(s): F33.2 - Major depressive disorder, recurrent severe without psychotic features (2) PTSD (post-traumatic stress disorder): Status: Acute Code(s): F43.10 - Post-traumatic stress disorder, unspecified (3) Alcohol abuse: Status: Acute Code(s): F10.10 - Alcohol abuse, uncomplicated (4) Crohn's disease: Status: Acute Code(s): K50.90 - Crohn's disease, unspecified, without complications Plan Patient is a 47-year-old male with history of depression, PTSD, chronic alcohol abuse/dependence, possible Crohn's disease who presents for worsening depression.? -Patient has an ever present, chronic moderate depression that intermittently worsens to bouts of severe depression; alcohol plays carious role as it both causes depression and relieves him of depressive thoughts, thus he is ambivalent about sobriety.? 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 Patient reports he may have Crohn's disease however he is ambivalent about his level of commitment to follow up with medical care. Hospital Course 03/15 patient reports feeling a little bit better; no SI. Agrees to increasing mirtazapine to 15 mg. Says withdrawals ending. Agrees to try Claritin for allergies. Considering going to a [facility] but still ambivalent. Patient acknowledges there is something about alcohol he is not sure if he is ready to give up, mostly how it subdued negative thoughts and feelings. 03/17 rash has not progressed. Patient has history of itchy skin (? exzema) Claritin discontinued as not effective for itching and was a new med started when rash recurred. 03/18 continued itching and restless legs last night only. Will increase benadryl for itching 03/19 patient's anxiety and mood have improved and he agrees that medications have been helping. Still wants to go to [facility] though has some ambivalence; wants sobriety but still is in contemplative stages of fully given up alcohol. Patient is going to groups. 03/20 remains overall better on Mirtazapine; possibly restless leg though has tolerated mirtazapine before; will likely try ropinirole 03/21 patient reports that he is overall doing better and that both depression and anxiety have improved; skeptical about whether he will continue mirtazapine but said he will try it with the ropinirole. Patient hoping to get into a program soon. Plan: CV Q 15 minute checks Continue to mirtazapine 15 mg q.h.s. Start ropinirole 0.25mg qhs Taper and discontinue Ativan Discontinued Claritin due to possible adverse reaction Hospitalist exam: # Crohn's disease- stable without acute flare up -Pt asymptoamtic at this time. 6+ without any flare -Recommend outpt follow up with gastroenterology -Unable to review colonoscopy report from [facility], but reviewed hospital notes #History RLE RVT- provoked -diagnosed at [facility] 09/01 on U/s (reviewed) -Treated inpt with heparin and transitioned to eliquis. Did not complete 3 months recommended course -RLE venous duplex negative for DVT. No further treatment with anticoagulants needed. Patient educated on: diagnosis, medication risk/benefits and substance abuse Informed Consent: understands Reason for continued inpatient stay Substantial Risk for: stable for discharge Time Spent With Patient Time: Total time managing care of this patient today ____ minutes.
[2023-03-21 09:09] VITALS: BP 105/65; PULSE 81; RESP 15; TEMP 36.4; O2SAT 96
[2023-03-21] MEDS: Folic Acid 1 MG TABLET PO (09:16)
[2023-03-21] MEDS: Thiamine HCL 100 MG TABLET PO (09:16)
[2023-03-21 11:02] VITALS: BMI 28.0
[2023-03-21 17:57] VITALS: BP 138/93; PULSE 84
[2023-03-21] MEDS: diphenhydrAMINE HCL 25 MG CAPSULE 50 MG PO (21:10)
[2023-03-21] MEDS: traZODone HCL 50 MG TABLET PO (23:36)
[2023-03-22] MEDS: Thiamine HCL 100 MG TABLET PO (08:55)
[2023-03-22] MEDS: Folic Acid 1 MG TABLET PO (08:55)
[2023-03-22 08:56] VITALS: BP 113/69; PULSE 80; RESP 14; TEMP 36.2
--- NOTE | 2023-03-22 09:32 | PM.PSYDC ---
DS: Providers Provider Date of Service: 03/22/23 Date of admission: 03/12/23 21:42 Date of discharge: 03/22/23 Primary care physician: None Physician Attending physician on admission: Ildefonso Tomlinson Consults: 03/12/23 17:31 Consult to Hospitalist Routine Comment: Consulting Provider: Hospitalist Reason For Exam: Transfer from [facility] Attending physician on discharge: Ildefonso Tomlinson DS: Diagnosis Discharge Diagnosis (1) Routine medical exam: Status: Deleted DS: Medications Discharge Medications Home Medications: Previous Rx's Medication Instructions Recorded cetirizine 5 mg tablet 5 mg PO DAILY 30 days #30 tabs 03/22/23 diphenhydramine HCl 50 mg capsule 50 mg PO Q6H PRN anxiety 30 days 03/22/23 #90 caps folic acid 1 mg tablet 1 mg PO DAILY 30 days #30 tabs 03/22/23 thiamine mononitrate (vit B1) 100 100 mg PO DAILY 30 days #30 tabs 03/22/23 mg tablet trazodone 50 mg tablet 50 mg PO BEDTIME PRN Insomnia 30 03/22/23 days #30 tabs Mental Status Exam Mental Status Exam Narrative: Pt is alert and oriented; behavior is cooperative and calm; patient is not in distress; dressed in casual attire with unkempt hair, scuffy, marginal hygiene; mood is described as good and affect congruent, brighter, more naturally expressive, smiles at times; eye contact intermittent; Speech is normal rate, volume and prosody and not pressured; no psychomotor retardation present; thought process is organized and goal directed; Thought content is on treatment, aftercare; otherwise pertinent to relevant topics and without any delusional content, paranoid ideations or grandiosity; no SI; no HI. There is no evidence of perceptual disturbance. Patients insight and judgment improved, fair and adequate. Data Imaging Diagnostic Imaging Impressions Venous Duplex 03/13/23 17:11 IMPRESSION: No DVT demonstrated in the right lower extremity. DS: Summary Hospital Course Hospital Course: Patient is a 47-year-old male with history of depression, PTSD, chronic alcohol abuse/dependence, Crohn's disease, hx of RLE DVT, who presents for worsening depression in the face of lack of treatment and chronic alcoholism.? On admission patient patient was detoxed from alcohol without incident. He reports he has an ever present, chronic moderate depression that intermittently worsens, bringing on bouts of severe depression; he also expressed with insight that alcohol plays a dual role as it both causes depression and relieves him of depressive thoughts, and he thus reports he is ambivalent about sobriety.? Patient was hesitant about medication management however he eventually agreed to retry mirtazapine which he said was tolerated in the past. Patient's mood slowly improved and while initially mostly isolating to himself, he became more visible in the milieu and easier with which to engage. Patient eventually decided to stop taking mirtazapine thinking it was causing him to have restless leg; he was going to try ropinirole that ultimately decided he did not want or need mirtazapine. Still, patient's depression abated, SI remained fully resolved, anxiety lessened and his affect was noticeably brighter; he wanted to go to a [facility] and expressed increased optimism about pursuing sobriety. Patient was accepted to a [facility] program and wanted to attend. He remained in almost a good mood and expressed gratitude for help received on admission. While patient remains vulnerable to both depression and relapse these are chronic issue for him, of which he is well aware, and require long-term commitment to outpatient treatment and sobriety which he is ready to pursue. Patient is much improved; he is not in imminent risk for harm to self or others and is appropriate to continue treatment in the community. His request for discharge honored. Time spent discussing smoking cessation with patient: 3 to 10 minutes Status at Discharge Functional status at discharge: independent ambulation Overall status at discharge: patient is back to baseline Time Spent with Patient Time attestation: Total time managing care of this patient today ____ minutes. Time spent: Less than 30 minutes Discharge Plan Discharge Anticipated Discharge Date/Time: 03/22/23 11:00 Patient Disposition: Home, Self-Care Discharge Diagnosis: MDD, recurrent, severe w/out psychosis, in partial remission Referrals: [facility]: Liana Bonilla [Other] - 03/25/23 11:00 am (Initial Diagnostic Evaluation for Therapy Appointment in person At [facility].) [facility]: Kanika Maciel [Other] - 04/18/23 11:00 am (Initial Psychiatric evaluation Initial appointment is tele-health. Please check your email for a link to the appointment.) [facility]: Kanika Tolbertuben [Other] - 05/20/23 10:00 am (Medication Management appointment Appointment is by tele-health. Check your email for a link to the appointment.) Physician,None [Primary Care Provider] - 1 Week Discharge Medications: New diphenhydramine HCl 50 mg capsule 50 mg PO Q6H PRN (Reason: anxiety) 30 Days Qty: 90 1RF trazodone 50 mg Tablet 50 mg PO BEDTIME PRN (Reason: Insomnia) 30 Days Qty: 30 1RF folic acid 1 mg Tablet 1 mg PO DAILY 30 Days Qty: 30 0RF thiamine mononitrate (vit B1) 100 mg Tablet 100 mg PO DAILY 30 Days Qty: 30 0RF Continued cetirizine 5 mg tablet 5 mg PO DAILY 30 Days Qty: 30 1RF Discharge Orders: Discharge Order (Routine); Ordered 03/22/23 Ordered By: Ildefonso Tomlinson Diet: Regular diet Activity on Discharge: As tolerated Stand Alone Forms: Patient Portal Discharge page Care Plan Goals: Maintain mood and safe behaviors Take medications as prescribed Continue to pursue sobriety Practice coping skills Continue with outpatient providers and reach out to them as needed Health Concerns: Mood stability and behaviors Sobriety hx abdomnial hernia Plan of Treatment: Follow up with your PCP, psychiatric provider and other outpatient providers regarding above concerns Take medications as prescribed Assessment: Risk assessment at time of discharge:? Patient was interviewed prior to discharge and found to be fully oriented and without any SI or HI. Patient has insight and demonstrates good judgment in terms of wanting to pursue treatment. Patient is not in imminent risk of harm to self or others and has a safety plan that includes presenting to the closest ER or calling 911 if feeling unsafe.? Patient has been observed closely by nursing and unit staff throughout admission; patient has not engaged in any behaviors that suggest dangerousness to self or others and has demonstrated appropriate behaviors and impulse control Discharge Date/Time: 03/22/23 11:40
== END 2023-03-22 11:40 | disposition home or self-care (01) | DRG 751 ==
PROVIDERS: Clinical Nurse Specialist Psychiatric/Mental Health, Adult; Admitting Provider Colon & Rectal Surgery; Visit Provider Psychiatry & Neurology Psychiatry
DX: F33.2 Major depressive disorder, recurrent severe without psychotic features (principal); R45.851 Suicidal ideations; F17.210 Nicotine dependence, cigarettes, uncomplicated; F43.10 Post-traumatic stress disorder, unspecified; F10.10 Alcohol abuse, uncomplicated; F14.10 Cocaine abuse, uncomplicated; F41.9 Anxiety disorder, unspecified; K50.90 Crohn's disease, unspecified, without complications; Z86.718 Personal history of other venous thrombosis and embolism; Z71.6 Tobacco abuse counseling; Z88.8 Allergy status to other drugs, medicaments and biological substances; Z79.899 Other long term (current) drug therapy
CPT/HCPCS: 36415; 80061; 82607; 82746; 83036; 83735; 84439; 84443; 93971